=== PATIENT | female | born 1990 | race Caucasian/White ===

== ENCOUNTER 2022-02-15 22:08 | Emergency (ER) | payer OTHER ==
[2022-02-15 22:25] VITALS: BP 144/83; PULSE 80; TEMP 98; BMI 23.2
[2022-02-15 23:44] LABS: PH,URINE 5.5 (5.0-8.0); URINE APPEARANCE CLEAR; URINE BILIRUBIN NEGATIVE (NEGATIVE); URINE COLOR YELLOW; URINE GLUCOSE (UA) NEGATIVE (NEGATIVE); URINE KETONE TRACE (NEGATIVE); URINE LEUK ESTERASE NEGATIVE (NEGATIVE); URINE NITRITE NEGATIVE (NEGATIVE); URINE PROTEIN NEGATIVE (NEGATIVE); URINE UROBILINOGEN 0.2 mg/dL (0.2-1.0)
[2022-02-15 23:54] LABS: BASO % 0.4 % (0-2.0); EOS % 4.1 % (0-4.5); HEMOGLOBIN 13.5 GM/dL (10.7-15.3); LYMPH % 36.3 % (8-40); MCH 30.9 pg (25.7-33.7); MCHC 34.5 g/dl (32.0-36.0); MEAN CELL VOLUME 89.5 fl (80-96); MEAN PLT VOLUME 7.3 fl (7.5-11.1); MONO % 8.2 % (3.8-10.2); PLATELET COUNT 359 10^3/uL (134-434); RBC 4.35 M/mm3 (3.60-5.2); RDW 12.4 % (11.6-15.6); WHITE BLOOD COUNT 6.8 K/mm3 (4.0-10.0)
[2022-02-16 00:08] LABS: ALBUMIN 3.6 g/dl (3.4-5.0); CALCIUM 9.5 mg/dL (8.5-10.1)
[2022-02-16 00:09] LABS: BLOOD UREA NITROGEN 14.1 mg/dL (7-18); MAGNESIUM 1.9 mg/dL (1.8-2.4)
[2022-02-16 00:12] LABS: CREATININE 0.6 mg/dL (0.55-1.3)
[2022-02-16 00:13] LABS: BILIRUBIN,TOTAL 0.5 mg/dL (0.2-1); TOT PROT 7.3 g/dl (6.4-8.2)
[2022-02-16] MEDS ORDERED: KETOROLAC TROMETHAMINE 15 MG/ML VIAL IVPUSH ONE (00:22)
[2022-02-16] MEDS ORDERED: KETOROLAC TROMETHAMINE 15 MG/ML VIAL ONE (00:39)
[2022-02-16] MEDS ORDERED: KETOROLAC TROMETHAMINE 15 MG/ML VIAL IM ONE (00:46)
== END 2022-02-16 00:47 | disposition home or self-care (01) ==
LOC: JER 22:08
DX: R20.9 Unspecified disturbances of skin sensation (principal)
CPT/HCPCS: 36415; 70450-TC; 80053; 81003; 82962; 83735; 84703; 85025; 87086; 99285-25

== ENCOUNTER 2023-04-11 18:40 | Emergency (ER) | payer BC ==
[2023-04-11 19:03] VITALS: BP 123/91; PULSE 90; RESP 18; TEMP 97.8; BMI 24.8
[2023-04-11] MEDS ORDERED: SODIUM CHLORIDE 0.9% 500 ML INFUS.BAG IV ONE (19:11)
[2023-04-11] MEDS ORDERED: ONDANSETRON 4 MG/2 ML VIAL IVPUSH ONE (19:11)
[2023-04-11] MEDS ORDERED: ONDANSETRON 4 MG/2 ML VIAL ONE (19:17)
[2023-04-11 19:41] LABS: HCG,QUALITATIVE URINE Negative
[2023-04-11 19:49] LABS: HEMATOCRIT 45.2 % (32.4-45.2); HEMOGLOBIN 15.6 G/dL (10.7-15.3); MCH 31.6 pg (25.7-33.7); MCHC 34.5 g/dl (32.0-36.0); MEAN CELL VOLUME 91.7 fl (80-96); PLATELET COUNT 260.3 10^3/uL (134-434); RBC 4.93 10^6/uL (3.60-5.2); RDW 13.4 % (11.6-15.6)
[2023-04-11 19:51] LABS: PLATELET ESTIMATE ADEQUATE
[2023-04-11 19:58] LABS: ALBUMIN 4.4 g/dl (3.4-5.0); BILIRUBIN,TOTAL 0.5 mg/dl (0.2-1); BLOOD UREA NITROGEN 8.4 mg/dl (7-18); CALCIUM 9.4 mg/dl (8.5-10.1); CREATININE 0.7 mg/dl (0.6-1.3); POTASSIUM 3.6 mmol/L (3.5-5.1); SGOT/AST 19.3 U/L (15-37); SGPT/ALT 17.4 U/L (7-52); TOT PROT 7.1 g/dl (6.4-8.2)
[2023-04-11 20:08] LABS: EPITHELIAL CELLS MODERATE /hpf
[2023-04-11] MEDS ORDERED: ACETAMINOPHEN 1000 MG/100 ML BAG IVPB ONE (20:13)
[2023-04-11] MEDS ORDERED: ACETAMINOPHEN INJECTION 100 ML IVPB ONE (20:19)
== END 2023-04-11 22:05 | disposition home or self-care (01) ==
LOC: FER 18:40
PROC: 3E033NZ Introduction of Analgesics, Hypnotics, Sedatives into Peripheral Vein, Percutaneous Approach (ICD-10-PCS; principal; 2023-04-11)
PROC: 3E033GC Introduction of Other Therapeutic Substance into Peripheral Vein, Percutaneous Approach (ICD-10-PCS; 2023-04-11)
DX: R10.13 Epigastric pain (principal); R19.7 Diarrhea, unspecified; R11.0 Nausea; K52.9 Noninfective gastroenteritis and colitis, unspecified; N83.292 Other ovarian cyst, left side
CPT/HCPCS: 36415; 74177-TC; 76830-TC; 80053; 81003; 81015; 83690; 84703; 85027; 86140; 87086; 99285-25; Q9967

== ENCOUNTER 2023-04-28 07:39 | Day surgery (SDC) | payer BC ==
[2023-04-27 10:38] VITALS: BMI 24.8
[2023-04-28 09:49] VITALS: TEMP 97
[2023-04-28 10:20] VITALS: RESP 18
[2023-04-28 10:21] VITALS: BP 105/64; PULSE 72
== END 2023-04-28 10:15 | disposition home or self-care (01) ==
LOC: FASU-ENDO 07:39
PROVIDERS: ATTEND Internal Medicine Gastroenterology
PROC: 0DB68ZX Excision of Stomach, Via Natural or Artificial Opening Endoscopic, Diagnostic (ICD-10-PCS; 2023-04-28)
PROC: 0DB98ZX Excision of Duodenum, Via Natural or Artificial Opening Endoscopic, Diagnostic (ICD-10-PCS; principal; 2023-04-28 09:35)
DX: K29.80 Duodenitis without bleeding (principal); K29.50 Unspecified chronic gastritis without bleeding; B96.81 Helicobacter pylori [H. pylori] as the cause of diseases classified elsewhere; K44.9 Diaphragmatic hernia without obstruction or gangrene; R10.13 Epigastric pain
CPT/HCPCS: 81025